=== PATIENT | male | born 1990 ===

== ENCOUNTER 2017-11-25 11:47 | Emergency (ER) | payer SELFPAY ==
[2017-11-25] MEDS ORDERED: Sodium Chloride 0.9% 1,000 ML IV ONE (12:11)
[2017-11-25 12:27] LABS: BASO % 0.3 % (0.0-2.0); EOS # 0.1 K/uL (0.0-0.7); EOS % 1.4 % (0.0-4.0); HEMOGLOBIN 13.4 g/dL (12.0-18.0); LYMPH # 3.4 K/uL (1.0-4.3); MEAN CELL VOLUME 90.9 fL (80.0-94.0); MEAN CORPUSCULAR HEMOGLOBIN 30.9 pg (27.0-31.0); MEAN PLATELET VOLUME 9.3 fL (7.2-11.7); MONO # 0.7 K/uL (0.0-0.8); MONO % 8.3 % (0.0-10.0); NEUT # 3.9 K/uL (1.8-7.0); RBC 4.34 Mil/uL (4.40-5.90); WHITE BLOOD COUNT 8.1 K/uL (4.8-10.8)
--- NOTE | 2017-11-25 12:27 | C.PDOC ---
History Of Present Illness 27 year old male w/o significant PMHx presents to ED for evaluation of episode of dizziness, lightheadedness associated with nausea just few hours prior to arrival. Pt notes, " woke up normal and developed dizziness after drinking coffee". Pt reports, the episode lasted about 15 minutes, self-limited. Pt denies any symptoms at present time including dizziness, or lightheadedness. Otherwise, pt denies fever, chills, recent illness, headache, vision change, focal deficits, change in speech, chest pain, shortness of breath, dyspnea, palpitation, cough, n/v/d, abdominal pain, back pain, UTI sx, denies any other active complaints. Ambulate to ED for evaluation, not in any apparent distress. Time Seen by Provider: 11/25/17 11:53 Chief Complaint (Nursing): Dizziness/Lightheaded History Per: Patient History/Exam Limitations: no limitations Onset/Duration Of Symptoms: Hrs Current Symptoms Are (Timing): Gone Fall Associated With With Symptoms: No Severity: None Pain Scale Rating Of: 0 Recent travel outside of the [place]: No Additional History Per: Patient Past Medical History Reviewed: Historical Data, Nursing Documentation, Vital Signs Vital Signs: Last Vital Signs Temp 98 F 11/25/17 14:34 Pulse 56 L 11/25/17 14:34 Resp 18 11/25/17 14:34 BP 112/62 11/25/17 14:34 Pulse Ox 96 11/25/17 14:45 Family History: States: Unknown Family Hx - Social History Hx Alcohol Use: Yes Hx Substance Use: No - Immunization History Hx Tetanus Toxoid Vaccination: No Hx Influenza Vaccination: No Hx Pneumococcal Vaccination: No Review Of Systems Except As Marked, All Systems Reviewed And Found Negative. Constitutional: Negative for: Fever, Chills Eyes: Negative for: Vision Change Cardiovascular: Negative for: Chest Pain, Palpitations, Light Headedness Respiratory: Negative for: Cough, Shortness of Breath Gastrointestinal: Negative for: Nausea, Vomiting, Abdominal Pain, Diarrhea Musculoskeletal: Negative for: Neck Pain, Back Pain Skin: Negative for: Rash, Bruising Neurological: Negative for: Weakness, Numbness, Change in Speech, Headache, Dizziness Physical Exam - Physical Exam Appears: Well, Non-toxic, No Acute Distress Skin: Normal Color, Warm, Dry, No Rash Head: Normacephalic Eye(s): bilateral: PERRL Ear(s): Bilateral: Normal Nose: No Flaring, No Discharge Oral Mucosa: Moist, No Drooling Throat: No Erythema, No Drooling Neck: Normal ROM, Supple Chest: Symmetrical Cardiovascular: No Murmur, No JVD, Other ((-) carotid bruits B/L) Respiratory: No Accessory Muscle Use, No Rales, No Rhonchi, No Stridor, No Wheezing Gastrointestinal/Abdominal: Soft, No Tenderness, No Distention, No Guarding Back: No CVA Tenderness Extremity: Normal ROM, No Pedal Edema, No Deformity Neurological/Psych: Oriented x3, Normal Speech, Normal Cognition, Normal Motor, Normal Sensation, Normal Reflexes, Other (no focal deficits) ED Course And Treatment - Laboratory Results Result Diagrams: 11/25/17 12:13 11/25/17 12:13 Lab Interpretation: Normal ECG: Interpreted By Me, Viewed By Me ECG Rhythm: Sinus Rhythm Interpretation Of ECG: SInus barrie@55/min, NAD, no acute T wave or ST-T changes. O2 Sat by Pulse Oximetry: 96 (RA) Pulse Ox Interpretation: Normal - Radiology CXR: Interpreted by Me, Read By Radiologist CXR Interpretation: Yes: No Acute Disease. No: Cardiomegaly - CT Scan/US CT abd/pelvis w/IV contrast Other Rad Studies (CT/US): Radiology Report Reviewed CT/US Interpretation: Creator : Romeo Rodarte MD. Dictator : Romeo Rodarte MD. Drum Stenciler : Aeronautical Engineering Teacher : Romeo Rodarte MD. Approver2 : Report Date : 11/25/2017 13:40:27. My Comment : . PROCEDURE: CT Abdomen and Pelvis with contrast. HISTORY: LLQ pain. COMPARISON: None. TECHNIQUE: Contrast dose: 100 mL Visipaque 320. Radiation dose: Total exam DLP = 270.94 mGy-cm. This CT exam was performed using one or more of the following dose reduction techniques: Automated exposure control, adjustment of the mA and/or kV according to patient size, and/or use of iterative reconstruction technique. FINDINGS: LOWER THORAX: Unremarkable. LIVER: Normal size and contour. No mass. No biliary dilatation. There is nonspecific periportal. GALLBLADDER AND BILE DUCTS: Edema. PANCREAS: Unremarkable. No gross lesion or ductal dilatation. SPLEEN: Unremarkable. ADRENALS: Unremarkable. No mass. KIDNEYS AND URETERS: Unremarkable. No hydronephrosis. No solid mass. VASCULATURE: Unremarkable. No aortic aneurysm. BOWEL: Unremarkable. No obstruction. No gross mural thickening. APPENDIX: Normal appendix. PERITONEUM: Trace fluid in pelvis. LYMPH NODES: Unremarkable. No enlarged lymph nodes. BLADDER: Unremarkable. REPRODUCTIVE: Normal prostate. BONES: l. No acute fracture. OTHER FINDINGS: None. IMPRESSION: Nonspecific periportal edema. This may be seen with congestive heart failure, hepatitis, cholangitis, etc. Please correlate. Trace fluid in pelvis, nonspecific. No additional abnormality. Progress Note: Pt was OBS in ED for 3 hours and remained asymptomatic. On re- evaluation, pt resting comfortably, not in any apparent distress. Afebrile, hemodynamicaly stable. Non-toxic. PulsEOx 100% RA. ENT: no drooling. uvula midline, no edema. Neck: SUpple, (-) JVD, (-) carotid bruits B/L. Lungs: CTA B /L, BS equal B/L. CVS: (+)S1S2, reg. Abd: benign, (-) guarding, (-) rebound. Back: (-) CVA tenderness. Neurologicaly intact. Blood work review and appears normal, no leukocytosis or left shift. BMP- no electolytes abnormalities. UA- normal study. CT abd/pelvis- no acute abnormalities noted. Results review and discussed with pt. Pt has clinical findings c/w. Pt ref. 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 return to ED if any worsening or new changes. NIHSS Stroke Scale 2 - Date/Time Evaluation Performed Date Performed: 11/25/17 Time Performed: 11:53 When Was NIHSS Performed: Baseline - How Severe is the Stroke Level of Consciousness: 0=Alert LOC to Questions: 0=Both comments correct LOC to commands: 0=Obeys both correctly Best Gaze: 0=Normal Visual: 0=No visual loss Facial: 0=Normal Motor Arm - Left: 0=No drift Motor Arm - Right: 0=No drift Motor Leg - Left: 0=No drift Motor Leg - Right: 0=No drift Limb Ataxia: 0=Absent Sensory: 0=Normal Best Language: 0=No aphasia Dysarthia: 0=Normal articulation Disposition Counseled Patient/Family Regarding: Studies Performed, Diagnosis, Need For Followup, Rx Given - Disposition Referrals: [facility] [Outside] Disposition: HOME/ ROUTINE Disposition Time: 14:29 Condition: STABLE Additional Instructions: Encourage fluids Follow up with PMD In 2-3 days for re-evaluation. Return to ED if any worsening or new changes. Instructions: Dizziness, Nonvertigo, (DC) Forms: [employer] (Nicaraguan) - Clinical Impression Clinical Impression: Dizziness - PA / AUTOMOTIVE LIGHT MECHANIC / Resident Statement MD/DO has reviewed & agrees with the documentation as recorded. - Scribe Statement The provider has reviewed the documentation as recorded by the Scribe Celso Eddy All medical record entries made by the Kathleenibe were at my direction and personally dictated by me. I have reviewed the chart and agree that the record accurately reflects my personal performance of the history, physical exam, medical decision making, and the department course for this patient. I have also personally directed, reviewed, and agree with the discharge instructions and disposition.
[2017-11-25] MEDS ORDERED: Sodium Chloride 0.9% 1,000 ML ONE (12:29)
[2017-11-25 12:32] LABS: INR 1.1; PROTHROMBIN TIME 12.1 SECONDS (9.7-12.2)
[2017-11-25 12:38] LABS: ALB/GLOB RATIO 1.2 (1.0-2.1); ALBUMIN 4.4 g/dL (3.5-5.0); ALT/SGPT 28 U/L (21-72); AST/SGOT 22 U/L (17-59); BLOOD UREA NITROGEN 10 mg/dL (9-20); GFR AFRICAN-AMERICAN > 60; GFR NON-AFRICAN AMERICAN > 60
[2017-11-25] MEDS ORDERED: Iodixanol 320 MG/ML 100 ML BOTTLE IV ONE (12:51)
--- NOTE | 2017-11-25 13:15 | RAD ---
HISTORY: chest pain COMPARISON: No prior. TECHNIQUE: Chest PA and lateral FINDINGS: LUNGS: No active pulmonary disease. PLEURA: No significant pleural effusion identified. No pneumothorax apparent. CARDIOVASCULAR: Normal. OSSEOUS STRUCTURES: No significant abnormalities. VISUALIZED UPPER ABDOMEN: Normal. OTHER FINDINGS: None. IMPRESSION: No active disease.
--- NOTE | 2017-11-25 13:42 | CT ---
PROCEDURE: CT Abdomen and Pelvis with contrast HISTORY: LLQ pain COMPARISON: None. TECHNIQUE: Contrast dose: 100 mL Visipaque 320 Radiation dose: Total exam DLP = 270.94 mGy-cm. This CT exam was performed using one or more of the following dose reduction techniques: Automated exposure control, adjustment of the mA and/or kV according to patient size, and/or use of iterative reconstruction technique. FINDINGS: LOWER THORAX: Unremarkable. LIVER: Normal size and contour. No mass. No biliary dilatation. There is nonspecific periportal GALLBLADDER AND BILE DUCTS: Edema. PANCREAS: Unremarkable. No gross lesion or ductal dilatation. SPLEEN: Unremarkable. ADRENALS: Unremarkable. No mass. KIDNEYS AND URETERS: Unremarkable. No hydronephrosis. No solid mass. VASCULATURE: Unremarkable. No aortic aneurysm. BOWEL: Unremarkable. No obstruction. No gross mural thickening. APPENDIX: Normal appendix. PERITONEUM: Trace fluid in pelvis LYMPH NODES: Unremarkable. No enlarged lymph nodes. BLADDER: Unremarkable. REPRODUCTIVE: Normal prostate BONES: l No acute fracture. OTHER FINDINGS: None. IMPRESSION: Nonspecific periportal edema. This may be seen with congestive heart failure, hepatitis, cholangitis, etc. Please correlate. Trace fluid in pelvis, nonspecific. No additional abnormality.
[2017-11-25 13:48] LABS: SQUAMOUS EPITHIAL < 1 /hpf (0-5); URINE BILIRUBIN NEGATIVE (NEGATIVE); URINE BLOOD NEGATIVE (NEGATIVE); URINE CLARITY Clear (Clear); URINE COLOR Yellow (YELLOW); URINE GLUCOSE (UA) NORMAL (Normal); URINE HYALINE CAST 0-2 /lpf (0-2); URINE LEUKOCYTE ESTERASE NEG Leu/uL (Negative); URINE PROTEIN NEGATIVE (NEGATIVE); URINE UROBILINOGEN NORMAL mg/dL (0.2-1.0)
[2017-11-25 14:09] LABS: BARBITURATES, UR NEGATIVE (NEGATIVE); BENZODIAZEPINES, UR NEGATIVE (NEGATIVE); OPIATES, UR NEGATIVE (NEGATIVE); PHENCYCLIDINE, UR NEGATIVE (NEGATIVE)
[2017-11-25 14:34] VITALS: BP 112/62; PULSE 56; RESP 18; TEMP 98
[2017-11-25 14:40] VITALS: O2SAT 96
== END 2017-11-25 14:45 | disposition home or self-care (01) ==
LOC: C.ER 11:47
DX: R42 Dizziness and giddiness (principal)
CPT/HCPCS: 71046; 74177; 80053; 81001; 82948; 84484; 85025; 85610; 85730; 96360; 99285; G0480; J7040; Q9967